=== PATIENT | female | born 1990 | race African-American/Black ===

== ENCOUNTER 2016-06-26 12:29 | Emergency (ER) | payer BC ==
[~2016-06-26 12:29] MED LIST: ALBUTEROL17 GM; ALBUTEROL17 GM INH; ALEVE220 M1 PO; AZITHROMYCIN250 MG PO; BACTRIM DS TABL1 TA1 PO; BENTYL10 MG DOB; BENTYL20 MG PO; CIPRO PO; CLEOCIN HCL300 M1 PO; FLEXERIL10 MG PO; HYDROCODON-ACE1 EAC7 PO; IBUPROFEN800 MG PO; NO MEDICATIONS; ORAVIG50 MG PO; PEN-VEE K PO; PERCOCET 7.5-31 EACH PO; PERIDEX480 ML PO; PREDNISONE PO; ROBAXIN500 MG PO; TYLENOL #3 PO; VOLTAREN50 MG PO; VOLTAREN75 MG PO; ZOFRAN ODT4 MG PO
[2016-06-26 15:08] LABS: URINE SOURCE CLEAN CATCH
[2016-06-26 15:11] LABS: URINE APPEARANCE CLEAR; URINE BILIRUBIN NEG (NEG); URINE BLOOD NEG (NEG); URINE COLOR DK YELLOW; URINE GLUCOSE NEG (NORM); URINE KETONE NEG (NEG); URINE LEUKOCYTE ESTERASE TRACE (NEG); URINE NITRATE NEG (NEG); URINE PROTEIN 1+ (NEG); URINE SPECIFIC GRAVITY 1.015 (1.003-1.035); URINE UROBILINOGEN 0.2 MG/DL (NORM)
[2016-06-26 15:14] LABS: MICRO INDICATED? YES
[2016-06-26 15:18] LABS: CULTURE INDICATED? YES; URINE BACTERIA 1+ (NEG); URINE MUCUS PRESENT; URINE RBC 0-2 /[HPF] (0-2); URINE SQUAMOUS EPITHELIAL CELL MANY /[HPF]
== END 2016-06-26 15:55 | disposition home or self-care (01) ==
LOC: SED 12:29
PROVIDERS: Emergency Medicine
DX: K52.9 Noninfective gastroenteritis and colitis, unspecified (principal); J45.909 Unspecified asthma, uncomplicated; F17.200 Nicotine dependence, unspecified, uncomplicated
CPT/HCPCS: 81003; 84703; 87086; 96372; 99283; 99284; J0500

== ENCOUNTER 2016-08-28 20:58 | Emergency (ER) | payer BC ==
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
[2016-08-28] MEDS ORDERED: ALBUTEROL17 GM INH (21:16)
== END 2016-08-28 22:26 | disposition home or self-care (01) ==
LOC: SED 20:58
DX: S33.5XXA Sprain of ligaments of lumbar spine, initial encounter (principal); S13.4XXA Sprain of ligaments of cervical spine, initial encounter; S50.11XA Contusion of right forearm, initial encounter; S80.01XA Contusion of right knee, initial encounter; J45.909 Unspecified asthma, uncomplicated; F17.200 Nicotine dependence, unspecified, uncomplicated; V43.52XA Car driver injured in collision with other type car in traffic accident, initial encounter; Y92.410 Unspecified street and highway as the place of occurrence of the external cause
CPT/HCPCS: 73030; 73090; 73560; 99284